=== PATIENT | female | born 1965 | race Caucasian/White ===

== ENCOUNTER 2016-11-07 05:41 | Emergency (ER) | payer OTHER ==
--- NOTE | 2016-11-07 06:15 | DIAGNOSTIC IMAGING REPORT ---
PROCEDURE: XR CHEST 1 VIEW INDICATION: CHEST PAIN TECHNIQUE: Portable AP view (0600 hours). COMPARISON: None. FINDINGS: Allowing for overlying wires and electrodes, lungs are clear. Heart and mediastinum are normal. Thorax is normal. IMPRESSION: 1. Negative chest.
--- NOTE | 2016-11-07 07:34 | ED CLINICAL REPORT ---
Clinical Report - Physicians/Mid Levels [facility] [address] [place] [address] 11/07/2016 5:42 Patient: AUDIE ROME Time Seen: 05:58. Arrived- By private vehicle. Historian- patient. HISTORY OF PRESENT ILLNESS Chief Complaint: CHEST PAIN. At its maximum, severity described as 2 / 10. When seen in the E.D., severity described as 1 / 10. Modifying factors. Not worsened by anything. Not relieved by anything. It is described as pressure and it is described as located in the central chest area. No radiation. This started last night at about 8 PM and is still present but is improving. It was gradual in onset and has been constant. Onset during rest. The patient has had nausea. She has had vomiting ("dry heaves"). No difficulty breathing or diaphoresis. (The patient reports that she is under "severe stress" she has been responsible for caring for her [id number]-sao who is currently suffering from cancer and this has created a lot of stress in their lives.). Similar symptoms previously: Several times. ( she has never had this evaluated). REVIEW OF SYSTEMS No chills, fever, calf pain, pedal edema or palpitations. No abdominal pain, black stools, bloody stools, constipation or diarrhea. No urinary problems. She has experienced sweats. (she attributes this to menopause). All systems otherwise negative, except as recorded above. PAST HISTORY PCP - Marlee Sterling Lucianna. SOCIAL HISTORY Current every day heavy tobacco smoker (cigarette)- 1 pack per day. No alcohol use or drug use. Is a local resident. FAMILY HISTORY Diabetes in first-degree relative (mother and father); hypertension in first-degree relative (mother); premature onset heart disease in first-degree relative (mother and father); asthma in first-degree relative (mother, father and sibling). ADDITIONAL NOTES The nursing notes have been reviewed. PHYSICAL EXAM Vital Signs: 11/07/2016 05:43 BP: 145/79. HR: 93. RR: 16. O2 saturation: 99%. Temp: 98.5 F. Pain level now: 0/10. Have been reviewed. Appearance: Alert. Anxious. Eyes: Pupils equal, round and reactive to light. ENT: Pharynx normal. Neck: Normal inspection. Neck supple. No JVD. CVS: Normal heart rate and rhythm. Heart sounds normal. Respiratory: No respiratory distress. Decreased air movement. Abdomen: Soft and nontender. Bowel sounds normal. No organomegaly. No mass. Skin: Skin warm and dry. Normal skin color. No rash. Normal skin turgor. Extremities: Extremities exhibit normal ROM. No calf tenderness. No lower extremity edema. LABS, X-RAYS, AND EKG EKG: EKG time: (6:45 AM). Rate: 72. Decreased QRS voltage. Prior EKG unavailable. The study has been independently viewed by me. Chest X-ray: No acute disease. The X-rays were interpreted by the radiologist and contemporaneously by me. Laboratory Tests: CBC w Diff: (VALENTÍN: 11/07/2016 05:48) ( [facility]07[facility]03) Final results Test Result Flag Units (Reference) WHITE BLOOD COUNT 7.9 K/uL (4.5-11.5) RED BLOOD COUNT 4.68 M/uL (4.00-5.20) HEMOGLOBIN 14.6 gm/dL (12.0-16.0) HEMATOCRIT 44.0 % (36.0-46.0) MEAN CELL VOLUME 94 fL (80-100) MEAN CORPUSCULAR HGB 31 pg (26-34) MEAN CORPUSCULAR HGB CONC 33 g/dL (31-37) RED CELL DISTRIBUTION WIDTH 13.7 % (11.6-14.8) PLATELET COUNT 249 K/uL (150-400) NEUTROPHIL % 62.2 % (50-75) LYMPH % 28.6 % (25-40) MONO % 6.9 % (3-14) EOSINOPHIL % 1.9 % (0-4) BASOPHIL % 0.4 % (0-2) CHEM 13 PANEL: (VALENTÍN: 11/07/2016 05:48) ( [facility] 11/07/2016 06:21) Final results Test Result Flag Units (Reference) GLUCOSE 138 H mg/dL (70-110) BUN 17 mg/dL (7-18) CREATININE 1.1 mg/dL (0.6-1.3) Estimated GFR 55.88 mL/min Estimated GFR- >60 mL/min Note: Persistent reduction over 3 months in eGFR<60 mL/min/1.73 m2 defines CKD. Patients with eGFR values>=60 mL/min/1.73 m2 may also have CKD if evidence ofpersistent proteinuria. Additional information may be foundat www.kidney.org. SODIUM 141 mmol/L (136-145) POTASSIUM 3.8 mmol/L (3.5-5.1) CHLORIDE 104 mmol/L (98-107) CARBON DIOXIDE 25 mmol/L (21-32) CALCIUM 9.1 mg/dL (8.5-10.1) TOTAL PROTEIN 7.7 g/dL (6.4-8.2) ALBUMIN 4.1 g/dL (3.3-5.0) BILIRUBIN, TOTAL 0.4 mg/dL (0.0-1.0) ALKALINE PHOSPHATASE 58 U/L (46-116) AST (SGOT) 18 U/L (15-37) ALT (SGPT) 24 U/L (12-78) MAGNESIUM 2.1 mg/dL (1.8-2.4) CPK 153 U/L (24-260) TROPONIN I <0.05 L ng/mL (0.00-1.5) TROPONIN REFERENCE RANGE:<0.1 NEGATIVE0.1-1.5 INDETERMINANT>1.5 POSITIVE . PROGRESS AND PROCEDURES Course of Care: Patient is stable. Patient/family counseled. Old medical records reviewed. Disposition: Discharged. Condition: stable. CLINICAL IMPRESSION Anxiety reaction. New onset diabetes with hyperglycemia (borderline). INSTRUCTIONS Avoid stimulants (such as cigarettes, coffee, cold medicines, sinus medicines, street drugs). Follow a diabetic diet. Do not smoke- benefits of smoking cessation discussed (>3 -10 minutes). Seek medical help to quit smoking. Warnings: Further evaluation is necessary. GENERAL WARNINGS: Return or contact your physician immediately if your condition worsens or changes unexpectedly, if not improving as expected, or if other problems arise. Understanding of the discharge instructions verbalized by patient and family. Follow-up with: Rafael Whalen MD, Family Practice, , [address] [place] [address], [phone] Follow up today. Call for the next available appointment. (Electronically signed by Branden Grijalva MD 11/07/2016 7:59)
--- NOTE | 2016-11-07 07:34 | ED CLINICAL REPORT ---
Clinical Report - Physicians/Mid Levels [facility] [address] [place] [address] 11/07/2016 5:42 Patient: AUDIE ROME Time Seen: 05:58. Arrived- By private vehicle. Historian- patient. HISTORY OF PRESENT ILLNESS Chief Complaint: CHEST PAIN. At its maximum, severity described as 2 / 10. When seen in the E.D., severity described as 1 / 10. Modifying factors. Not worsened by anything. Not relieved by anything. It is described as pressure and it is described as located in the central chest area. No radiation. This started last night at about 8 PM and is still present but is improving. It was gradual in onset and has been constant. Onset during rest. The patient has had nausea. She has had vomiting ("dry heaves"). No difficulty breathing or diaphoresis. (The patient reports that she is under "severe stress" she has been responsible for caring for her qeutoi-vc-aav who is currently suffering from cancer and this has created a lot of stress in their lives.). Similar symptoms previously: Several times. ( she has never had this evaluated). REVIEW OF SYSTEMS No chills, fever, calf pain, pedal edema or palpitations. No abdominal pain, black stools, bloody stools, constipation or diarrhea. No urinary problems. She has experienced sweats. (she attributes this to menopause). All systems otherwise negative, except as recorded above. PAST HISTORY PCP - Marlee Sterling Lucianna. SOCIAL HISTORY Current every day heavy tobacco smoker (cigarette)- 1 pack per day. No alcohol use or drug use. Is a local resident. FAMILY HISTORY Diabetes in first-degree relative (mother and father); hypertension in first-degree relative (mother); premature onset heart disease in first-degree relative (mother and father); asthma in first-degree relative (mother, father and sibling). ADDITIONAL NOTES The nursing notes have been reviewed. PHYSICAL EXAM Vital Signs: 11/07/2016 05:43 BP: 145/79. HR: 93. RR: 16. O2 saturation: 99%. Temp: 98.5 F. Pain level now: 0/10. Have been reviewed. Appearance: Alert. Anxious. Eyes: Pupils equal, round and reactive to light. ENT: Pharynx normal. Neck: Normal inspection. Neck supple. No JVD. CVS: Normal heart rate and rhythm. Heart sounds normal. Respiratory: No respiratory distress. Decreased air movement. Abdomen: Soft and nontender. Bowel sounds normal. No organomegaly. No mass. Skin: Skin warm and dry. Normal skin color. No rash. Normal skin turgor. Extremities: Extremities exhibit normal ROM. No calf tenderness. No lower extremity edema. LABS, X-RAYS, AND EKG EKG: EKG time: (6:45 AM). Rate: 72. Decreased QRS voltage. Prior EKG unavailable. The study has been independently viewed by me. Chest X-ray: No acute disease. The X-rays were interpreted by the radiologist and contemporaneously by me. Laboratory Tests: CBC w Diff: (VALENTÍN: 11/07/2016 05:48) ( [facility] 11/07[facility]2016 06[facility]03) Final results Test Result Flag Units (Reference) WHITE BLOOD COUNT 7.9 K/uL (4.5-11.5) RED BLOOD COUNT 4.68 M/uL (4.00-5.20) HEMOGLOBIN 14.6 gm/dL (12.0-16.0) HEMATOCRIT 44.0 % (36.0-46.0) MEAN CELL VOLUME 94 fL (80-100) MEAN CORPUSCULAR HGB 31 pg (26-34) MEAN CORPUSCULAR HGB CONC 33 g/dL (31-37) RED CELL DISTRIBUTION WIDTH 13.7 % (11.6-14.8) PLATELET COUNT 249 K/uL (150-400) NEUTROPHIL % 62.2 % (50-75) LYMPH % 28.6 % (25-40) MONO % 6.9 % (3-14) EOSINOPHIL % 1.9 % (0-4) BASOPHIL % 0.4 % (0-2) CHEM 13 PANEL: (VALENTÍN: 11/07/2016 05:48) ( [facility] 11/07/2016 06:21) Final results Test Result Flag Units (Reference) GLUCOSE 138 H mg/dL (70-110) BUN 17 mg/dL (7-18) CREATININE 1.1 mg/dL (0.6-1.3) Estimated GFR 55.88 mL/min Estimated GFR- >60 mL/min Note: Persistent reduction over 3 months in eGFR<60 mL/min/1.73 m2 defines CKD. Patients with eGFR values>=60 mL/min/1.73 m2 may also have CKD if evidence ofpersistent proteinuria. Additional information may be foundat www.kidney.org. SODIUM 141 mmol/L (136-145) POTASSIUM 3.8 mmol/L (3.5-5.1) CHLORIDE 104 mmol/L (98-107) CARBON DIOXIDE 25 mmol/L (21-32) CALCIUM 9.1 mg/dL (8.5-10.1) TOTAL PROTEIN 7.7 g/dL (6.4-8.2) ALBUMIN 4.1 g/dL (3.3-5.0) BILIRUBIN, TOTAL 0.4 mg/dL (0.0-1.0) ALKALINE PHOSPHATASE 58 U/L (46-116) AST (SGOT) 18 U/L (15-37) ALT (SGPT) 24 U/L (12-78) MAGNESIUM 2.1 mg/dL (1.8-2.4) CPK 153 U/L (24-260) TROPONIN I <0.05 L ng/mL (0.00-1.5) TROPONIN REFERENCE RANGE:<0.1 NEGATIVE0.1-1.5 INDETERMINANT>1.5 POSITIVE . PROGRESS AND PROCEDURES Course of Care: Patient is stable. Patient/family counseled. Old medical records reviewed. Disposition: Discharged. Condition: stable. CLINICAL IMPRESSION Anxiety reaction. New onset diabetes with hyperglycemia (borderline). INSTRUCTIONS Avoid stimulants (such as cigarettes, coffee, cold medicines, sinus medicines, street drugs). Follow a diabetic diet. Do not smoke- benefits of smoking cessation discussed (>3 -10 minutes). Seek medical help to quit smoking. Warnings: Further evaluation is necessary. GENERAL WARNINGS: Return or contact your physician immediately if your condition worsens or changes unexpectedly, if not improving as expected, or if other problems arise. Understanding of the discharge instructions verbalized by patient and family. Follow-up with: Rafael Whalen MD, Family Practice, , [address] [place] [address], [phone] Follow up today. Call for the next available appointment. (Electronically signed by Branden Grijalva MD 11/07/2016 7:59)
--- NOTE | 2016-11-07 07:34 | ED NURSING NOTES ---
Clinical Report - Nurses [facility] [address] [place] [address] 11/07/2016 5:42 [id number] Triage time 05:43. Acuity: LEVEL 2. Chief Complaint: CHEST DISCOMFORT and ("not feeling right"). Alert. No acute distress. --05:48 Maritza Suarez R.N. 05:43 11/07/16. BP: 145/79. HR: 93. RR: 16. O2 saturation: 99%. Temp: 98.5 F (oral). Pain level now: 0/10. --05:48 Maritza Suarez R.N. Weight: 81.6 kg stated. Height/Length: 66 inches Per Patient. BMI: 29. --05:46 Maritza Suarez R.N. Medications None. --05:44 Maritza Suarez R.N. Allergies Morphine and Related. --05:44 Maritza Suarez R.N. Sulfa Antibiotics. --05:45 Maritza Suarez R.N. Hydrocodone. --05:45 Maritza Suarez R.N. Penicillins. --05:45 Maritza Suarez R.N. History Arrived by private vehicle. Historian: patient. Accompanied by family. Primary physician (Marlee). This started last night. Onset. (at about 2039). Treatment ADMINISTRATIVE [address] JUSTICE: None. PAST MEDICAL HX: Immunizations: up-to-date. SOCIAL HX: Heavy tobacco smoker (cigarette)- 1-2 packs per day. No alcohol use or drug use. NUTRITIONAL RISK ASSESSMENT: The nutritional risk assessment revealed no deficiencies. FUNCTIONAL ASSESSMENT: Functional assessment: no impairments noted. --05:48 Maritza Suarez R.N. PROBLEMS: no known problems. ADDITIONAL SURGERIES: Appendectomy. Hernia Repair. Hysterectomy. Laparoscopy. Shoulder Surgery. --05:46 Maritza Suarez R.N. Interventions ID band on patient. To treatment room. --05:48 Maritza Suarez R.N. PHYSICAL ASSESSMENT Ambulatory to room. Patient gowned. GENERAL / NEURO / PSYCH: Alert. Oriented X 4. Appears in no acute distress. HEENT: Mucous membranes are pink. RESPIRATORY: Respirations not labored. CVS: Capillary refill less than 2 seconds. SKIN: Skin is warm and dry. --05:48 Maritza Suarez R.N. NURSING PROGRESS NOTES Head of bed elevated. Two patient identifiers checked. Call light placed in reach. Side rails up x 1. Bed placed in lowest position. Brakes of bed on. --05:48 Maritza Suarez R.N. Patient ready for evaluation- chart flagged. --05:48 Maritza Suarez R.N. 05:48 11/07/2016 Site #1 started via IV in the left antecubital space with an 20g angiocath, with aseptic technique and good blood return. Blood drawn: rainbow set. Labeled in the presence of the patient and sent to the lab. Saline lock flushed with 10 mL saline (started by Tera Foster RN). --05:49 Maritza Suarez R.N. EKG time: (0549). EKG was performed by a tech and shown to the ED physician. --05:49 Maritza Suarez R.N. 05:51 11/07/2016 Aspirin PO 325 mg given. Allergies verified and confirmed 5 rights. --05:55 Tera Chow R.N. EKG time: (0645). EKG was ordered, performed by a tech and shown to the ED physician. First EKG poor quality, requested repeat. --06:50 Erick Mccray, ER Coagulating Operator 07:02 Patient assisted to restroom. --07:02 Tera Chow R.N. DISPOSITION / DISCHARGE 07:54 11/07/16. BP: 117/63 (regular adult cuff) taken on the left arm, while sitting. HR: 73 (regular). RR: 18 (regular). O2 saturation: 98% on room air. Temp: 97.7 F (oral). Pain level now: 0/10. --07:58 Nori Villalpando R.N. 07:49 11/07/2016 Site #1 removed upon discharge. Bandaid applied. --08:00 Nori Villalpando R.N. 07:58 11/07/16. Departure time: 07:58 Nov 07 2016. Condition at departure: improved. No learning barriers present. Discharge instructions provided and reviewed with the patient. Reviewed need to stop smoking- provided smoking cessation materials. Written instructions provided in Amharic. No activity restrictions. No work note given. The patient was discharged home and accompanied by corporate securities research analyst. She left the Emergency Department ambulatory and via private vehicle. Patient driving. FALL RISK ASSESSMENT: Fall risk assessment completed. No fall risk identified. --07:58 Nori Villalpando R.N. Locked/Released at 11/07/2016 8:02 by Nori Villalpando R.N.
--- NOTE | 2016-11-07 07:34 | ED NURSING NOTES ---
Clinical Report - Nurses [facility] [address] [place] [address] 11/07/2016 5:42 [id number] TRIAGE Triage time 05:43. Acuity: LEVEL 2. Chief Complaint: CHEST DISCOMFORT and ("not feeling right"). Alert. No acute distress. --05:48 Maritza Suarez R.N. 05:43 11/07/16. BP: 145/79. HR: 93. RR: 16. O2 saturation: 99%. Temp: 98.5 F (oral). Pain level now: 0/10. --05:48 Maritza Suarez R.N. Weight: 81.6 kg stated. Height/Length: 66 inches Per Patient. BMI: 29. --05:46 Maritza Suarez R.N. Medications None. --05:44 Maritza Suarez R.N. Allergies Morphine and Related. --05:44 Maritza Suarez R.N. Sulfa Antibiotics. --05:45 Maritza Suarez R.N. Hydrocodone. --05:45 Maritza Suarez R.N. Penicillins. --05:45 Maritza Suarez R.N. History Arrived by private vehicle. Historian: patient. Accompanied by family. Primary physician (Marlee). This started last night. Onset. (at about 2039). Treatment [employer]: None. PAST MEDICAL HX: Immunizations: up-to-date. SOCIAL HX: Heavy tobacco smoker (cigarette)- 1-2 packs per day. No alcohol use or drug use. NUTRITIONAL RISK ASSESSMENT: The nutritional risk assessment revealed no deficiencies. FUNCTIONAL ASSESSMENT: Functional assessment: no impairments noted. --05:48 Maritza Suarez R.N. PROBLEMS: no known problems. ADDITIONAL SURGERIES: Appendectomy. Hernia Repair. Hysterectomy. Laparoscopy. Shoulder Surgery. --05:46 Maritza Suarez R.N. Interventions ID band on patient. To treatment room. --05:48 Maritza Suarez R.N. PHYSICAL ASSESSMENT Ambulatory to room. Patient gowned. GENERAL / NEURO / PSYCH: Alert. Oriented X 4. Appears in no acute distress. HEENT: Mucous membranes are pink. RESPIRATORY: Respirations not labored. CVS: Capillary refill less than 2 seconds. SKIN: Skin is warm and dry. --05:48 Maritza Suarez R.N. NURSING PROGRESS NOTES Head of bed elevated. Two patient identifiers checked. Call light placed in reach. Side rails up x 1. Bed placed in lowest position. Brakes of bed on. --05:48 Maritza Suarez R.N. Patient ready for evaluation- chart flagged. --05:48 Maritza Suarez R.N. 05:48 11/07/2016 Site #1 started via IV in the left antecubital space with an 20g angiocath, with aseptic technique and good blood return. Blood drawn: rainbow set. Labeled in the presence of the patient and sent to the lab. Saline lock flushed with 10 mL saline (started by Tera Foster RN). --05:49 Maritza Suarez R.N. EKG time: (0549). EKG was performed by a tech and shown to the ED physician. --05:49 Maritza Suarez R.N. 05:51 11/07/2016 Aspirin PO 325 mg given. Allergies verified and confirmed 5 rights. --05:55 Tera Chow R.N. EKG time: (0645). EKG was ordered, performed by a tech and shown to the ED physician. First EKG poor quality, requested repeat. --06:50 Erick Mccray, ER Hotel Dining Room Cashier 07:02 Patient assisted to restroom. --07:02 Tera Chow R.N. DISPOSITION / DISCHARGE 07:54 11/07/16. BP: 117/63 (regular adult cuff) taken on the left arm, while sitting. HR: 73 (regular). RR: 18 (regular). O2 saturation: 98% on room air. Temp: 97.7 F (oral). Pain level now: 0/10. --07:58 Nori Villalpando R.N. 07:49 11/07/2016 Site #1 removed upon discharge. Bandaid applied. --08:00 Nori Villalpando R.N. 07:58 11/07/16. Departure time: 07:58 Nov 07 2016. Condition at departure: improved. No learning barriers present. Discharge instructions provided and reviewed with the patient. Reviewed need to stop smoking- provided smoking cessation materials. Written instructions provided in Welsh. No activity restrictions. No work note given. The patient was discharged home and accompanied by regulatory affairs manager. She left the Emergency Department ambulatory and via private vehicle. Patient driving. FALL RISK ASSESSMENT: Fall risk assessment completed. No fall risk identified. --07:58 Nori Villalpando R.N. Locked/Released at 11/07/2016 8:02 by Nori Villalpando R.N.
--- NOTE | 2016-11-07 07:35 | ED ORDER SUMMARY ---
..... Patient: AUDIE R[facility]: [id number] [address] [place] [address] 50y, F Registration Date/Time: 11/07/2016 ORDER SHEET Weight: 81.6 kg (stated) Allergies: Morphine and Related, Sulfa Antibiotics, Hydrocodone, Penicillins GENERAL ORDERS: Chest 1V Urgent (05:53 11/07/2016 JQuivey R.N. per protocol) (6:05 GUnger) (Ack 6:06 CHategekimana) Power Chisel Operator (Continuous) (CP) (05:54 11/07/2016 JQuivey R.N. per protocol) (5:55 JQuivey R.N.) Cardiac Panel Stat (05:54 11/07/2016 JQuivey R.N. per protocol) (Ack 6:06 Apurva) (7:02 JQuivey R.N.) EKG - ER Stat (05:54 11/07/2016 JQuivey R.N. per protocol) (5:56 JQuivey R.N.) MEDICATION ORDERS: Aspirin PO 325 mg (NOW) (05:54 11/07/2016 JQuivey R.N. per protocol) (5:55 JQuivey R.N.) IV FLUIDS: IV Saline Lock (05:54 11/07/2016 JQuivey R.N. per protocol) (5:55 JQuivey R.N.) ORDER SHEET NOTES: [Electronically signed by Branden Grijalva MD (07:59 11/07/2016)] [Electronically signed by Nori Villalpando R.N. (08:02 11/07/2016)] [Electronically locked/signed by Nori Villalpando R.N. (08:02 11/07/2016)]
--- NOTE | 2016-11-07 07:35 | ED ORDER SUMMARY ---
..... Patient: AUDIE ROME OrderSheet [facility] VisitID: [id number] [address] [place] [address] 50y, F Registration Date/Time: 11/07/2016 ORDER SHEET Weight: 81.6 kg (stated) Allergies: Morphine and Related, Sulfa Antibiotics, Hydrocodone, Penicillins GENERAL ORDERS: Chest 1V Urgent (05:53 11/07/2016 JQuivey R.N. per protocol) (6:05 GUnger) (Ack 6:06 CHategekimana) Dehydration Plant Operator (Continuous) (CP) (05:54 11/07/2016 JQuivey R.N. per protocol) (5:55 JQuivey R.N.) Cardiac Panel Stat (05:54 11/07/2016 JQuivey R.N. per protocol) (Ack 6:06 Apurva) (7:02 JQuivey R.N.) EKG - ER Stat (05:54 11/07/2016 JQuivey R.N. per protocol) (5:56 JQuivey R.N.) MEDICATION ORDERS: Aspirin PO 325 mg (NOW) (05:54 11/07/2016 JQuivey R.N. per protocol) (5:55 JQuivey R.N.) IV FLUIDS: IV Saline Lock (05:54 11/07/2016 JQuivey R.N. per protocol) (5:55 JQuivey R.N.) ORDER SHEET NOTES: [Electronically signed by Branden Grijalva MD (07:59 11/07/2016)] [Electronically signed by Nori Villalpando R.N. (08:02 11/07/2016)] [Electronically locked/signed by Nori Villalpando R.N. (08:02 11/07/2016)]
--- NOTE | 2016-11-07 08:02 | ED MAR SUMMARY ---
..... Medication Administration Record [facility] [address] [place] [address] Patient: AUDIE ROME Visit ID: [id number] 50y, F Weight: 81.6 kg Height/Length: 66 in BMI: 29 ALLERGIES: Penicillins, Hydrocodone, Sulfa Antibiotics, Morphine and Related Given 05:51 11/07/2016 Tera Chow RSocoNSoco Medication Administered: ASPIRIN [PO], Dose: 325 mg PO. Medication Ordered: Aspirin PO 325 mg (NOW).
--- NOTE | 2016-11-07 08:02 | ED MAR SUMMARY ---
..... Medication Administration Record [facility] [address] [place] [address] Patient: AUDIE ROME Visit ID: [id number] 50y, F Weight: 81.6 kg Height/Length: 66 in BMI: 29 ALLERGIES: Penicillins, Hydrocodone, Sulfa Antibiotics, Morphine and Related Given 05:51 11/07/2016 Tera Chow RSocoNSoco Medication Administered: ASPIRIN [PO], Dose: 325 mg PO. Medication Ordered: Aspirin PO 325 mg (NOW).
--- NOTE | 2016-11-07 08:02 | ED DISCHARGE INSTRUCTIONS ---
Patient: AUDIE ROME General Instructions [facility] VisitID: [id number] [address] [place], [place] [id number] 50y, F Registration Date/Time: 11/07/2016 Anxiety reaction. New onset diabetes with hyperglycemia (borderline). INSTRUCTIONS Avoid stimulants (such as cigarettes, coffee, cold medicines, sinus medicines, street drugs). Follow a diabetic diet. Do not smoke- benefits of smoking cessation discussed (>3 -10 minutes). Seek medical help to quit smoking. Warnings: Further evaluation is necessary. GENERAL WARNINGS: Return or contact your physician immediately if your condition worsens or changes unexpectedly, if not improving as expected, or if other problems arise. Understanding of the discharge instructions verbalized by patient and family. Follow-up with: Rafael Whalen MD, [facility], , [address] [phone] Follow up today. Call for the next available appointment. ADDITIONAL INFORMATION Stress Reaction Anxiety is the feeling we all get when we think something bad might happen. It is a normal response to stress and usually causes only a mild reaction. When anxiety becomes more severe, emotions may interfere with daily life. In some cases, you may not even be aware of what it is youre anxious about! During an anxiety reaction, you may feel like you are helpless, nervous, depressed or irritable. Your body may show signs of anxiety in many ways. You may experience dry mouth, shakiness, dizziness, weakness, trouble breathing, chest pressure, headache, nausea, diarrhea, tiredness, inability to sleep or sexual problems. Home Care: 1) Try to locate the sources of stress in your life. They may not be obvious! These may include: -- Daily hassles of life which pile up (traffic jams, missed appointments, car troubles, etc.) -- Major life changes, both good (new baby, job promotion) and bad (loss of job, loss of loved one) -- Overload: feeling that you have too many responsibilities and can't take care of all of them at once -- Feeling helpless, feeling that your problems are beyond what youre able to solve 2) Notice how your body reacts to stress. Learn to listen to your body signals. This will help you take action before the stress becomes severe. 3) When you can, do something about the source of your stress. (Avoid hassles, limit the amount of change that happens in your life at one time and take a break when you feel overloaded). 4) Unfortunately, many stressful situations cannot be avoided. It is necessary to learn HOW TO MANAGE STRESS better. There are many proven methods that will reduce your anxiety. These include simple things like exercise, good nutrition and adequate rest. Also, there are certain techniques that are helpful: relaxation and breathing exercises, visualization, biofeedback and meditation. For more information about this, consult your doctor or go to a local bookstore and review the many books and tapes available on this subject. Follow Up If you feel that your anxiety is not responding to self-help measures, contact your doctor or make an appointment with a counselor. Get Prompt Medical Attention if any of the following occur: -- Your symptoms get worse -- Chest pain or trouble breathing -- Severe headache not relieved by rest and mild pain reliever -- Rapid or irregular heartbeat, fainting Panic Attack A panic attack is an extreme fear reaction that comes on for no apparent reason. Symptoms may include pounding or racing heartbeat, shortness of breath, dizziness, weakness and sweating. There is usually a fear that something terrible will happen or that you may . The attack may last a few minutes up to a few hours. Between attacks things will seem quite normal. This condition has a psychological cause and can be treated with the help of a therapist or psychiatrist. Medication is often used and can be very helpful for this problem. Home Care: Try to identify the sources of stress in your life. It may not be obvious! These may include: Daily hassles of life which pile up (traffic jams, missed appointments, car troubles, etc.). Major life changes, both good (new baby, job promotion) and bad (loss of job, loss of loved one). Overload: feeling that you have too many responsibilities and can't take care of everything at once. Helplessness: feeling like your problems are too much for you to handle. Notice how your body reacts to stress. Learn to listen to your body signals so that you can take action before the stress becomes severe. When possible, AVOID or REDUCE THE CAUSE OF STRESS. Avoid hassles, limit the amount of change that is happening in your life at one time or take a break when you feel overloaded. Unfortunately, many stressful situations cannot be avoided. Therefore, it is necessary to LEARN HOW TO MANAGE STRESS better. There are many proven methods that work and will reduce your anxiety. These include simple things like exercise, good nutrition and adequate rest. Also, there are certain techniques that are helpful: relaxation and breathing exercises, visualization, biofeedback, meditation or simply taking some time-out to clear your mind. For more information about this, consult your doctor or go to a local bookstore and review the many books and tapes available on this subject. Follow Up with your doctor or a therapist as advised. Get Prompt Medical Attention if any of the following occur: Worsening of your symptoms to the point of feeling [id number] A change in the type of pain: if it feels different, becomes more severe, lasts longer, or begins to spread into your shoulder, arm, neck, jaw or back Shortness of breath or increased pain with breathing Increasing feeling of weakness or dizziness Fainting Cough with dark colored sputum (phlegm) or blood Fever of 100.4F (38C) or higher, or as directed by your healthcare provider Swelling, pain or redness in one leg Diabetes (General Information) Cells of the body need glucose (sugar) for fuel. Insulin is the hormone in the body that lets glucose move from the blood into the cells. Diabetes is a chronic health condition where the body is not able to produce enough insulin, or does not respond well to its own insulin. Because the glucose in the blood cannot get into the cells, it builds up in the blood causing high blood sugar (hyperglycemia). Your actual blood sugar level is a result of the balance between several factors. These include what kind of food you eat and how much of it you eat, how much exercise you get, and the amount of insulin present in your body. Eating too much of the wrong kinds of food or not taking diabetes medicine on time can cause high blood sugar. Infections can cause high blood sugar even if you are taking medicines correctly. Missing meals, not eating enough food, or taking too much diabetes medicine can lead to low blood sugar. Untreated over long periods of time, diabetes can cause serious problems such as heart disease, stroke, kidney failure, blindness, nerve pain or loss of feeling in the legs and feet, and gangrene of the feet. With good treatment keeping your blood sugar under control, you can prevent or delay the complications of diabetes. Normal blood sugar levels are 70-130 one to two hours before a meal and not more than 180 two hours after a meal. Home Care: Follow your prescribed diabetic diet and take insulin or oral diabetic medicine exactly as ordered. Monitor blood sugars as advised. Keep a log of your results. This will help your doctor adjust your medicines to keep your blood sugar under control. Try to achieve your ideal weight. Proper diet and exercise can reduce or eliminate the need to take diabetes medicine. Avoid tobacco smoking, which worsens the effect of diabetes on your circulation. The risk of a heart attack in a diabetic is 15 times more likely if you smoke. Pay attention to good foot care. If you have lost feeling in your feet you may not notice an injury or infection. Check your feet and between your toes at least once a week. Wear a medical alert bracelet or carry a card in your wallet explaining that you are diabetic. In the event that you become very ill and are unable to give this information, it will help medical personnel provide proper care. If you become sick with a cold, the flu, or an infection (viral or bacterial), please do the following: Review your diabetes sick plan and contact your physician as instructed. You may have been advised to call the doctor immediately if: Your blood sugar is above 240 while taking your diabetes medication Your urine ketone levels are above normal or showing high levels of ketones You have been vomiting more than 6 hours You experience difficulty to trouble breathing You develop a high fever or you have had a fever for a couple of days and you aren't getting better You become light-headed and more sleepy than usual Keep taking your oral diabetes medicine (pills) even if you have been vomiting and feeling sick. Contact your doctor immediately for advice because you may need insulin to lower your blood sugar until you recover from your illness. Keep taking your insulin, even if you have been vomiting and feeling sick. Call your doctor immediately and ask if a temporary adjustment of your insulin dose is needed based on your blood glucose (sugar) results. Check your blood sugar every 2 to 4 hours, or at least 4 times a day. Check your keytones often. If you are vomiting and having diarrhea, monitor them more frequently. Don't skip meals. Try to eat small meals on a regular schedule, even if you do not have an appetite. Drink water or other calorie-free, non-caffeinated liquids to stay hydrated. If you are nauseated or vomiting, drink small amounts (sips, a teaspoon) every 5 minutes. To prevent dehydration, try to drink a cup or 8 ounces of fluids every hour while you are awake. Always carry a source of fast-acting sugar with you in case you get symptoms of low blood sugar (below 70). At the first sign of low blood sugar, eat or drink 15 to 20 grams of fast-acting sugar to raise your blood sugar. Examples include: 3 to 4 glucose tablets (found at most drugstores) 4 ounces (1/2 cup) of regular (not diet) softdrinks 4 ounces (1/2 cup) of any fruit juice 8 ounces (1 cup) of milk 5 to 6 pieces of hard candy 1 tablespoon of honey Check your blood sugar 15 minutes after treating yourself. If it is still low (below 70), take another 15 to 20 grams of fast-acting sugar. Test again in 15 minutes. If it returns to normal (70 or above), eat a snack or meal to keep your blood sugar in a safe range. If it remains low, call your doctor or go to an emergency room. Follow Up with your doctor as advised by our staff. For more information, contact the [place] [employer]. www.diabetes.org or 576-344-0424. Get Prompt Medical Attention if any of the following occur: HIGH BLOOD SUGAR: frequent urination, dizziness, drowsiness, thirst, headache, nausea or vomiting, abdominal pain, vision changes, fast breathing, confusion or loss of consciousness LOW BLOOD SUGAR: fatigue, headache, shakes, excess sweating, hunger, feeling anxious or restless, vision changes, drowsiness, weakness, confusion or loss of consciousness Chest pain or shortness of breath Dizziness or fainting Weakness of an arm or leg or one side of the face Trouble with speech or vision How To Quit Smoking Smoking is one of the hardest habits to break. About half of all those who have ever smoked have been able to quit, and most of those (about 70%) who still smoke want to quit. Here are some of the best ways to stop smoking. Keep Trying: It takes most smokers about 8 tries before they are finally able to fully quit. So, the more often you try and fail, the better your chance of quitting the next time! So, don't give up! Go Cold Chancellor: Most ex-smokers quit cold turkey. Trying to cut back gradually doesn't seem to work as well, perhaps because it continues the smoking habit. Also, it is possible to fool yourself by inhaling more while smoking fewer cigarettes. This results in the same amount of nicotine in your body! Get Support: Support programs can make an important difference, especially for the heavy smoker. These groups offer lectures, methods to change your behavior and peer support. Call the free national Quitline for more information. 117-LERU-MXE (388-532-2375). Low-cost or free programs are offered by many hospitals, local chapters of the [place] [employer] (382-611-3044) and the [place] (305-442-5913). Support at home is important too. Non-smokers can help by offering praise and encouragement. If the smoker fails to quit, encourage them to try again! Nbre-Nis-Fsbaivc Medicines: For those who can't quit on their own, Nicotine Replacement Therapy (NRT) may make quitting much easier. Certain aids such as the nicotine patch, gum and lozenge are available without a prescription. However, it is best to use these under the guidance of your doctor. The skin patch provides a steady supply of nicotine to the body. Nicotine gum and lozenge gives temporary bursts of low levels of nicotine. Both methods take the edge off the craving for cigarettes. WARNING: If you feel symptoms of nicotine overdose, such as nausea, vomiting, dizziness, weakness, or fast heartbeat, stop using these and see your doctor. Prescription Medicines: After evaluating your smoking patterns and prior attempts at quitting, your doctor may offer a prescription medicine such as bupropion (Zyban, Wellbutrin), varenicline (Chantix, Champix), a niocotine inhaler or nasal spray. Each has its unique advantage and side effects which your doctor can review with you. Health Benefits Of Quitting: The benefits of quitting start right away and keep improving the longer you go without smokin minutes: blood pressure and pulse return to normal 8 hours: oxygen levels return to normal 2 days: ability to smell and taste begins to improve as damaged nerves start to regrow 2-3 weeks: circulation and lung function improves 1-9 months: decreased cough, congestion and shortness of breath; less tired 1 year: risk of heart attack decreases by half 5 years: risk of lung cancer decreases by half; risk of stroke becomes the same as a non-smoker For information about how to quit smoking, visit the following links: National Cancer [place] , Clearing the Air, Quit Smoking Today - an online booklet. http://www.smokefree.gov/pubs/clearing_the_air.pdf Smokefree.gov http://smokefree.gov/ QuitNet http://www.quitnet.com/ You have been given the following additional information: Anxiety Reaction Panic Attack Diabetes, General Info Smoking Cessation (Electronically signed by Branden Grijalva MD 11/07/2016 7:59)
--- NOTE | 2016-11-07 08:03 | ED MED RECONCILIATION SUMMARY ---
Patient: AUDIE ROME Medication Reconciliation Report [facility] VisitID: [id number] [place] [address] 50y, F Registration Date/Time: 11/07/2016 Weight: 81.6 kg Height/Length: 66 in. BMI: 29.0 ALLERGIES: Hydrocodone, Morphine and Related, Penicillins, Sulfa Antibiotics The patient's Home Medications are listed below: NONE. The source(s) of the original Home Medication information: Not obtained. The following Medications were given to the patient in the Emergency Department: Aspirin [PO] PO 325 mg, administered: 11/07/2016 5:51:00 AM The following Medications were prescribed to the patient: None.
--- NOTE | 2016-11-07 08:03 | ED MED RECONCILIATION SUMMARY ---
Patient: AUDIE ROME Medication Reconciliation Report [facility] VisitID: [id number] [address] [place] [address] 50y, F Registration Date/Time: 11/07/2016 Weight: 81.6 kg Height/Length: 66 in. BMI: 29.0 ALLERGIES: Hydrocodone, Morphine and Related, Penicillins, Sulfa Antibiotics The patient's Home Medications are listed below: NONE. The source(s) of the original Home Medication information: Not obtained. The following Medications were given to the patient in the Emergency Department: Aspirin [PO] PO 325 mg, administered: 11/07/2016 5:51:00 AM The following Medications were prescribed to the patient: None.
== END 2016-11-07 07:59 | disposition home or self-care (01) ==
LOC: ED SRH 05:41
DX: F41.1 Generalized anxiety disorder (principal); E11.65 Type 2 diabetes mellitus with hyperglycemia; F17.210 Nicotine dependence, cigarettes, uncomplicated; Z88.5 Allergy status to narcotic agent; Z88.0 Allergy status to penicillin; Z88.2 Allergy status to sulfonamides
CPT/HCPCS: 90100; 90616; 92610; 92720; 95059